=== PATIENT | female | born 1990 | race African-American/Black ===

== ENCOUNTER 2018-09-19 12:38 | Emergency (ER) | payer OTHER ==
[~2018-09-19] VITALS: Ht 170.2 cm; Wt 59.0 kg
[2018-09-19 12:56] LABS: URINE BILIRUBIN NEGATIVE (Negative); URINE BLOOD NEGATIVE (Negative); URINE CLARITY CLEAR; URINE COLOR YELLOW; URINE GLUCOSE-RANDOM* NEGATIVE (Negative); URINE KETONES NEGATIVE (Negative); URINE LEUKOCYTES-REFLEX NEGATIVE (Negative); URINE NITRITE-REFLEX NEGATIVE (Negative); URINE PROTEIN (DIPSTICK) NEGATIVE (Negative); URINE SPECIFIC GRAVITY 1.025 (1.005-1.035)
[2018-09-19 15:39] VITALS: BP 99/67
== END 2018-09-19 15:41 | disposition home or self-care (01) ==
LOC: ER 12:38
PROVIDERS: Physician Assistant
DX: Z20.2 Contact with and (suspected) exposure to infections with a predominantly sexual mode of transmission (principal); J02.8 Acute pharyngitis due to other specified organisms; F17.210 Nicotine dependence, cigarettes, uncomplicated

== ENCOUNTER 2018-10-21 20:11 | Emergency (ER) | payer OTHER ==
[~2018-10-21] VITALS: Ht 170.2 cm; Wt 61.2 kg
[2018-10-21 20:59] LABS: ABSOLUTE NEUTROPHILS 2.2 thou/uL (1.4-8.2); EOSINOPHILS 5.6 % (0.0-3.0); HEMATOCRIT 40.1 % (37.0-47.0); HEMOGLOBIN 14.1 gm/dL (12.0-15.0); LYMPHOCYTES 42.9 % (24.0-44.0); MCH 33.1 pg (26.0-34.0); MCHC 35.1 g/dL (28.0-37.0); MCV 94.4 fL (80.0-100.0); PLATELET COUNT 265 thou/uL (150-400); POLYS 42.5 % (36.0-66.0); RBC 4.25 mil/uL (4.20-5.00); RDW 13.4 % (10.5-14.5); URINE BILIRUBIN NEGATIVE (Negative); URINE BLOOD NEGATIVE (Negative); URINE CLARITY CLEAR; URINE COLOR YELLOW; URINE GLUCOSE-RANDOM* NEGATIVE (Negative); URINE KETONES TRACE (Negative); URINE LEUKOCYTES NEGATIVE (Negative); URINE NITRITE NEGATIVE (Negative); URINE PROTEIN (DIPSTICK) NEGATIVE (Negative); URINE SPECIFIC GRAVITY 1.025 (1.005-1.035); WBC 5.1 thou/uL (4.0-11.0)
[2018-10-21 21:09] LABS: ANION GAP 8 mmol/L (7-16); BUN 20 mg/dL (7-18); CHLORIDE 103 mmol/L (98-107); CO2 29 mmol/L (21-32); CREATININE 1.2 mg/dL (0.6-1.0); GLUCOSE 101 mg/dL (74-106); POTASSIUM 3.4 mmol/L (3.5-5.1); SODIUM 140 mmol/L (136-145)
[2018-10-21 21:11] LABS: AMP/METHAMP POSITIVE (Negative); BARBITURATES Negative (Negative); BENZODIAZEPINES Negative (Negative); COCAINE POSITIVE (Negative); METHADONE Negative (Negative); OPIATES Negative (Negative); PCP Negative (Negative)
[2018-10-21 21:12] LABS: APTT 31.5 Seconds (24.5-32.8); PROTIME 10.8 Seconds (9.3-11.4)
[2018-10-21 21:15] LABS: ALBUMIN 4.1 g/dL (3.4-5.0); SALICYLATE < 2.8 mg/dL (2.8-20.0); SGOT 15 U/L (15-37); SGPT 15 U/L (30-65); TOTAL BILIRUBIN 0.5 mg/dL (<0.1-1.0)
[2018-10-21 23:30] VITALS: BP 113/73
== END 2018-10-21 23:30 | disposition home or self-care (01) ==
LOC: ER 20:11
PROVIDERS: Emergency Medicine
DX: S16.1XXA Strain of muscle, fascia and tendon at neck level, initial encounter (principal); S70.12XA Contusion of left thigh, initial encounter; S80.02XA Contusion of left knee, initial encounter; F14.10 Cocaine abuse, uncomplicated; R91.1 Solitary pulmonary nodule; F12.10 Cannabis abuse, uncomplicated; F15.10 Other stimulant abuse, uncomplicated; F17.210 Nicotine dependence, cigarettes, uncomplicated; V49.9XXA Car occupant (driver) (passenger) injured in unspecified traffic accident, initial encounter; Y93.89 Activity, other specified; Y92.89 Other specified places as the place of occurrence of the external cause; Y99.8 Other external cause status

== ENCOUNTER 2018-11-12 15:24 | Inpatient (IN) | payer OTHER ==
[~2018-11-12] VITALS: Ht 170.2 cm; Wt 56.8 kg
[2018-11-12 15:24] VITALS: BP 129/90
[2018-11-12 16:20] LABS: ABSOLUTE NEUTROPHILS 2.7 thou/uL (1.4-8.2); BASOPHILS 0.7 % (0.0-2.0); HEMATOCRIT 39.6 % (37.0-47.0); HEMOGLOBIN 13.8 gm/dL (12.0-15.0); LYMPHOCYTES 31.2 % (24.0-44.0); MCH 32.4 pg (26.0-34.0); MCHC 34.8 g/dL (28.0-37.0); MCV 93.2 fL (80.0-100.0); MONOCYTES 7.9 % (1.0-8.0); PLATELET COUNT 261 thou/uL (150-400); POLYS 58.2 % (36.0-66.0); RBC 4.25 mil/uL (4.20-5.00); RDW 12.6 % (10.5-14.5); WBC 4.6 thou/uL (4.0-11.0)
[2018-11-12 16:28] LABS: ANION GAP 10 mmol/L (7-16); BUN 15 mg/dL (7-18); CALCIUM 9.1 mg/dL (8.5-10.1); CHLORIDE 103 mmol/L (98-107); CO2 24 mmol/L (21-32); GLUCOSE 93 mg/dL (74-106); POTASSIUM 3.4 mmol/L (3.5-5.1); SODIUM 137 mmol/L (136-145)
[2018-11-12 16:34] LABS: ALBUMIN 4.2 g/dL (3.4-5.0); DIRECT BILIRUBIN 0.1 mg/dL (<0.1-0.3); SALICYLATE < 2.8 mg/dL (2.8-20.0); SGOT 18 U/L (15-37); SGPT 16 U/L (30-65); TOTAL BILIRUBIN 0.4 mg/dL (<0.1-1.0); TOTAL PROTEIN 8.1 g/dL (6.4-8.2)
[2018-11-12 19:23] VITALS: BP 130/85
[2018-11-12 19:31] VITALS: BP 124/84
[2018-11-12 20:29] VITALS: BP 109/64
[2018-11-12 21:16] LABS: AMP/METHAMP POSITIVE (Negative); BARBITURATES Negative (Negative); BENZODIAZEPINES Negative (Negative); COCAINE POSITIVE (Negative); METHADONE Negative (Negative); OPIATES Negative (Negative); PCP Negative (Negative)
[2018-11-13 03:49] VITALS: BP 103/59
--- NOTE | 2018-11-13 04:45 | NUR ---
Admission history and assessments completed. Careplan initiated. Vital sings and rhythm stable. IVFluids infusing. 1:1 sitter at bedside. Patient denies having any suicidal thoughts since admission. For psych consult. Slept most of the night. Currently on her menstrual period.
[2018-11-13 07:55] VITALS: BP 115/81
--- NOTE | 2018-11-13 12:42 | NUR ---
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 etc. Suspicious that patient may have some personal belongings, such as needles, that security may need to search through. tire room supervisor called and notified, along with security. Informed patient that we will be going through her belongings for inventory and security may take some items to hold. Patient is agreeable. Security and resort housekeeper searched through patient belongings with patient in room - needles, Narcan and crack pipe found and taken by security. Pharmacy called to floor and are currently holding needles and Narcan for the time being. Patient was dressed to hospital gown only, shorts, socks and underwear removed. Bedding and room was searched, as well, by resort housekeeper and security. Patient moved to new room, 363. Clothing and backpack remains behind locked door. New room was scrubbed, potentially harmful items removed of new room. Sitter remains at bedside.
--- NOTE | 2018-11-13 14:47 | NUR ---
Assumed care of patient at 0700. Vitals have been stable. Patient is alert and oriented x4, drowsy at times, but arouses easily. Speech is somewhat slurred and hard to understanding at times - patient talks fast. Patient denies active thoughts of suicide, but states just feels like giving up at times and has a lot of emotional pain and feels it is time someone helps her. 1:[address] sitter [address] at bedside. Dr. Carrera rounded on patient today. IVF discontinued. Denies pain. Up with SBA. Slowly progressing towards POC. Will continue to monitor.
--- NOTE | 2018-11-13 15:31 | NUR ---
ASSESSMENT: CM REVIEWED CHART AND MET WITH PATIENT AT THE BEDSIDE. PT HAS HX OF POLYSUBSTANCE ABUSE AND SI. PSYCH WAS CONSULTED AND SAW PATIENT TODAY AND RECOMMENDING INPATIENT PSYCH, PATIENT IS AGREEABLE AND CURRENTLY ON 1:1. CM MET WITH PATIENT AT THE BEDSIDE. PT CURRENTLY HAS NO INSURANCE. REFERRAL WAS SENT TO [facility]. PT STATES SHE IS INTERESTED IN POSSIBLY GOING [facility]. CM PLACED CALL TO [facility] AND WAS GIVEN THE BED PAGER #[phone], CM LEFT PAGE AND WAITING TO HEAR BACK. CM ALSO CONTACTED [facility] [phone] AND THEY STATE THEY DO NOT CURRENTLY HAVE A FEMALE BED AVAILABLE. CM WILL CONTINUE TO FOLLOW PENDING BED AVAILABILITY FOR INPATIENT PSYCH.
[2018-11-13 16:05] VITALS: BP 105/69
[2018-11-13 18:47] VITALS: BP 112/74
[2018-11-14 01:06] LABS: HAV IgM AB (ANTI-HAV IgM) Negative (Negative); HEPATITIS B SURFACE AG Negative (Negative); HEPATITIS C VIRUS AB <0.1 (0.0-0.9); HIV ANTIBODY Non Reactive (Non Reactive)
--- NOTE | 2018-11-14 08:05 | NUR ---
SLEPT MOST OF SHIFT. CALM AND PLEASENT, BECOMES EXCITABLE AT TIMES AND TALKS FAST. 1:1 SITTER REMAINS AT BEDSIDE. MAINTAIN SAFE ENVIRONMENT. NO TALKING OF SUICIDAL THOUGHTS THIS SHIFT. WORKING ON GOALS AND PLAN OF CARE FOR NOC. PROGRESSING TOWARDS GOALS FOR INPATIENT PSYCH AT [place] WHEN BED AVIALABLE. CONTINUE TO ASSES CLOESLY.
[2018-11-14 08:22] VITALS: BP 107/68
--- NOTE | 2018-11-14 08:33 | NUR ---
ON-GOING ASSESSMENT: CM REACHED OUT TO [facility] THIS AM AT 0830 AND THEY STATE THEY CURRENTLY DO NOT HAVE A BED AT THIS TIME BUT CAN CHECK BACK THIS AFTERNOON. CM ALSO REACHED OUT TO [facility] [facility] AND THEY DO NOT HAVE A BED AT THIS TIME AND STATED TO CALL BACK THIS AFTERNOON. CM WILL CONTINUE TO FOLLOW.
[2018-11-14 12:05] VITALS: BP 92/5
[2018-11-14 16:38] VITALS: BP 98/54
[2018-11-14 19:39] VITALS: BP 107/66
--- NOTE | 2018-11-14 20:08 | NUR ---
Assumed care of patient at 0700. Vitals have been stable. Alert and oriented x4. Appear manic at times - very pleasant, hyper, interactive with staff; othertimes sad and tearful during conversations. Denies pain. Up with SBA. 1:1 sitter remains at bedside. Patient with great appetite. Awaiting bed for inpatient psych. Progressing towards POC. Will continue to monitor.
[2018-11-15 07:11] VITALS: BP 99/67
--- NOTE | 2018-11-15 07:30 | NUR ---
SLEPT MOST OF SHIFT. UP AD WENCESLAO IN ROOM WITH 1:1 SITTER FOR CLOSE OBSERVATION. WORKING ON GOALS AND PLAN OF CARE FOR NOC. PROGRESSING SLOWLY TOWARDS DISCHARGE GOALS TO INPATIENT PSYCH. MAINTAIN SAFE ENVIRONMENT. DENIES COMPLAINTS OF PAIN, HAD HEARTBURN LAST NOC WITH NOTED RELIEF WITH ZOFRAN IV. CONTINUE TO ASSES.
--- NOTE | 2018-11-15 11:20 | NUR ---
ASSUMED PATIENT CARE AT 0715. A&OX4. NO COMPLAINTS OF PAIN. 1:1. SHOWERED TODAY. WAITING FOR INPATIENT PSYCH BED.
--- NOTE | 2018-11-15 12:39 | NUR ---
on-going assessment: CM REVIEWED CHART. JESUS CONTACTED [facility] WHO STATES THEY HAVE ONE FEMALE BED FOR INPATIENT PSYCH OPEN AND CAN ACCEPT THE PATIENT. ACCEPTING PHYSICIAN IS DR. FEDE ESPINAL. JESUS SPOKE WITH LM THE [employer] DISPENSER AT [facility]. JESUS NOTIFIED BEDSIDE RN THAT A BED IS AVAILABLE AT [facility] AND SHE WILL BE LEAVING TODAY. CM NOTIFIED ATTENDING AND DISCHARGE ORDERS ARE IN. LM AT [facility] STATES TO JUST SEND THE DISCHARGE ORDERS IN THE CHART COPY AND THEY DO NOT NEED TO BE FAXED. JEUSS PROVIDED BEDSIDE RN WITH THE NUMBER FOR REPORT [phone]. JESUS CONTACTED [facility] AND NOTIFIED THEM SHE IS GOING TO INPATIENT PSYCH AND NEEDS 22/05 SUPERVISION AND ADDRESS FOR [facility] IS [address] [facility] [address] [address]. JESUS ALSO PROVIDED BEDSIDE RN WITH THE TRANSPORT FORM TO FINISH COMPLETING PRIOR TO PATIENT BEING PICKED UP. CM NOTIFIED PATIENT OF DISCHARGE TODAY AND SHE IS AGREEABLE. CHART COPY ORDERED.
== END 2018-11-15 13:09 | DRG 881 ==
LOC: ER 15:24 → EROBS 18:36 → 3W 18:36
PROVIDERS: Hospitalist; Nurse Practitioner; ADMIT Internal Medicine
DX: F32.9 Major depressive disorder, single episode, unspecified (principal); E87.6 Hypokalemia; F17.210 Nicotine dependence, cigarettes, uncomplicated; F12.10 Cannabis abuse, uncomplicated; F14.10 Cocaine abuse, uncomplicated; F19.10 Other psychoactive substance abuse, uncomplicated; S00.83XA Contusion of other part of head, initial encounter; X58.XXXA Exposure to other specified factors, initial encounter; Y93.89 Activity, other specified; Y92.89 Other specified places as the place of occurrence of the external cause; Y99.8 Other external cause status
CPT/HCPCS: 10879